=== PATIENT | male | born 1995 | race African-American/Black ===

== ENCOUNTER 2018-01-22 11:52 | Inpatient (IN) | payer OTHER ==
[2018-01-22 12:34] LABS: Reticulocyte Count 6.4 % (0.5-1.5)
[2018-01-22 12:57] LABS: ALT (SGPT) 56 U/L (8-55); AST (SGOT) 44 U/L (5-34); Albumin 4.6 g/dL (3.5-5.0); Alkaline Phosphatase 85 U/L (Less than 750); Anion Gap 13 mmol/L (10-20); BUN (Urea Nitrogen) 7 mg/dL (8.9-20.6); Bilirubin, Total 1.6 mg/dL (0.2-1.2); Calc. Creatinine Clearance 0 mL/min (70-130); Calcium 9.3 mg/dL (7.8-10.44); Carbon Dioxide 24 mmol/L (22-29); Chloride 108 mmol/L (98-107); Estimated GFR-MDRD Greater than 90; Globulin 3.3 g/dL (2.4-3.5); Glucose 99 mg/dL (70-105); Potassium 3.7 mmol/L (3.5-5.1); Protein, Total 7.9 g/dL (6.0-8.3); Sodium 141 mmol/L (136-145)
[2018-01-22 13:01] LABS: Band 3 % (5-11); Hemoglobin 12.1 g/dL (14.0-18.0); Hemoglobin C Crystals SLIGHT (None Seen); Lymphocytes 26 % (28-48); MDiff Complete? YES; Mean Corpuscular HGB CONC 35.6 g/dL (32.0-36.0); Mean Corpuscular Hemoglobin 30.6 pg (25.0-35.0); Mean Platelet Volume 7.7 fL (7.4-10.4); Monocytes 7 % (0-4); Myelocyte 1 % (0-0); Neutrophil 63 % (31-61); Nucleated RBC 1 % (0); Platelet Count 366 thou/uL (130-400); Polychromasia MARKED = >4 cells (100X) (0-2/hpf); Red Blood Cell (RBC) Count 3.95 mill/uL (4.00-5.20); Target Cells MODERATE= 6-15 cells (100X) (0-1/hpf); White Blood Cell (WBC) Count 12.1 thou/uL (4.8-10.8)
[2018-01-22] MEDS ORDERED: Morphine 4 MG/ML VIAL ONE (13:03)
--- NOTE | 2018-01-22 13:16 | RAD ---
PORTABLE CHEST ONE VIEW: 01/22/2018 12:44 p.m. HISTORY: Chest pain. Sickle cell crisis. FINDINGS: The heart size is normal. The lungs are well expanded without focal areas of consolidation, pneumoth orax, or pleural effusions. IMPRESSION: No radiographic evidence of acute cardiopulmonary process. POS: [facility]
[2018-01-22] MEDS ORDERED: HYDROmorphone 0.5 MG/0.5 ML SYRINGE SLOW IVP SCH (14:15)
[2018-01-22] MEDS ORDERED: HYDROmorphone 0.5 MG/0.5 ML SYRINGE ONE ×3 (15:06→17:37)
[2018-01-22] MEDS ORDERED: HYDROcodone/Acetaminophen 5/325 mg Tablet PO PRN ×2 (17:13)
[2018-01-22] MEDS ORDERED: Acetaminophen 325 MG TAB PO PRN (17:13)
[2018-01-22] MEDS ORDERED: Ondansetron HCl/PF 4 MG/2 ML Vial IVP PRN ×3 (17:13→18:29)
[2018-01-22] MEDS ORDERED: HYDROmorphone 2 MG/ML VIAL SLOW IVP SCH (17:15)
[2018-01-22] MEDS ORDERED: Morphine 4 MG/ML VIAL SLOW IVP PRN (17:16)
[2018-01-22] MEDS ORDERED: Zolpidem Tartrate 5 MG TAB PO PRN ×2 (17:58→18:29)
[2018-01-22] MEDS ORDERED: Promethazine HCl 25 MG/ML VIAL IM PRN ×2 (17:58→18:29)
[2018-01-22] MEDS ORDERED: Naloxone HCl 0.4 mg/ml Vial IV PRN ×2 (17:58→18:29)
[2018-01-22] MEDS ORDERED: diphenhydrAMINE 50 MG/ML VIAL IVP PRN ×2 (17:58→18:29)
[2018-01-22] MEDS ORDERED: HYDROmorphone 10 mg/100 ml CADD IVPB PRN (17:58)
[2018-01-22] MEDS ORDERED: diphenhydrAMINE 50 MG/ML VIAL IM PRN ×2 (17:58→18:29)
[2018-01-22] MEDS ORDERED: diphenhydrAMINE 25 MG CAP PO PRN (17:58)
[2018-01-22] MEDS ORDERED: Communication Order-Pharmacy FS SCH ×2 (18:00→18:30)
[2018-01-22] MEDS ORDERED: Morphine CADD 1 MG/ML CADD IVPB PRN ×2 (18:29→19:56)
[2018-01-22 18:31] VITALS: BMI 28.3
[2018-01-22] MEDS: Famotidine 40 MG/4 ML VIAL SLOW IVP SCH (20:56)
[2018-01-22] MEDS ORDERED: HYDROmorphone 10 mg/100 ml CADD IV PRN (21:38)
[2018-01-22] MEDS ORDERED: Ketorolac Tromethamine 30 MG/ML VIAL IVP SCH (21:45)
[2018-01-23] MEDS: diphenhydrAMINE 25 MG CAP PO PRN ×2 (00:11→15:17)
[2018-01-23] MEDS: Sodium Chloride 0.9% 1,000 ML IV SCH ×5 (00:15→20:30)
[2018-01-23 05:33] LABS: ALT (SGPT) 49 U/L (8-55); AST (SGOT) 37 U/L (5-34); Albumin 4.3 g/dL (3.5-5.0); Alkaline Phosphatase 67 U/L (Less than 750); Anion Gap 10 mmol/L (10-20); BUN (Urea Nitrogen) 7 mg/dL (8.9-20.6); Bilirubin, Total 1.9 mg/dL (0.2-1.2); Calc. Creatinine Clearance 196 mL/min (70-130); Calcium 9.2 mg/dL (7.8-10.44); Carbon Dioxide 28 mmol/L (22-29); Chloride 103 mmol/L (98-107); Estimated GFR-MDRD Greater than 90; Globulin 3.3 g/dL (2.4-3.5); Glucose 88 mg/dL (70-105); Potassium 3.7 mmol/L (3.5-5.1); Protein, Total 7.6 g/dL (6.0-8.3); Sodium 137 mmol/L (136-145)
[2018-01-23 05:49] LABS: Hemoglobin C Crystals SLIGHT (None Seen); Lymphocytes 18 % (28-48); MDiff Complete? YES; Mean Corpuscular HGB CONC 35.9 g/dL (32.0-36.0); Mean Corpuscular Volume 86.2 fl (77.0-87.0); Mean Platelet Volume 8.2 fL (7.4-10.4); Monocytes 14 % (0-4); Neutrophil 68 % (31-61); Nucleated RBC 7 % (0); Platelet Count 310 thou/uL (130-400); Polychromasia MODERATE = 3-4 cells (100X) (0-2/hpf); Red Blood Cell (RBC) Count 3.54 mill/uL (4.00-5.20); Target Cells MODERATE= 6-15 cells (100X) (0-1/hpf); White Blood Cell (WBC) Count 16.2 thou/uL (4.8-10.8)
[2018-01-23] MEDS: Famotidine 40 MG/4 ML VIAL SLOW IVP SCH ×2 (09:41→21:20)
[2018-01-23] MEDS: Enoxaparin Sodium 30 MG/0.3 ML SYRINGE SC SCH (09:49)
[2018-01-23] MEDS ORDERED: Morphine 4 MG/ML VIAL ONE (11:35)
[2018-01-23] MEDS ORDERED: Morphine 4 MG/ML VIAL IV SCH (11:45)
[2018-01-23] MEDS ORDERED: Acetaminophen 1,000 MG in Premix Bag 1 BAG IVPB SCH (11:45)
[2018-01-23] MEDS: Ketorolac Tromethamine 30 MG/ML VIAL IVP SCH ×3 (11:52→23:49)
[2018-01-23] MEDS: Acetaminophen 325 MG TAB PO SCH ×3 (11:53→23:50)
[2018-01-23] MEDS: HYDROmorphone 10 mg/100 ml CADD IV PRN (12:00)
--- NOTE | 2018-01-23 21:55 | PDOC.PN ---
- Subjective Encounter Start Date: 01/23/18 Encounter Start Time: 12:00 Subjective: nsg notes rev, placed on dilaudid crankshaft grinder ovn, improved pain ctrl per pt -: denies any sob, does have some pain with urination - Objective Resuscitation Status: Resuscitation Status FULL:Full Resuscitation Vital Signs & Weight: Vital Signs (12 hours) Temp Pulse Resp BP Pulse Ox 01/23/18 20:00 98.3 F 67 18 162/70 H 98 01/23/18 15:00 98.3 F 52 L 18 98 01/23/18 14:00 98.3 F 52 L 18 162/93 H 98 01/23/18 13:39 98.5 F 01/23/18 13:35 144/65 H 01/23/18 11:13 101.3 F H 72 29 H 191/88 H 97 Weight Weight 214 lb 12.8 oz I&O: 01/22/18 01/23/18 01/24/18 06:59 06:59 06:59 Intake Total 2139 850 Output Total 1175 1100 Balance 964 -250 Result Diagrams: 01/23/18 04:41 01/23/18 04:41 Phys Exam - Physical Examination Constitutional: NAD lying in hospital bed HEENT: PERRLA, sclera anicteric, oral pharynx no lesions Respiratory: no wheezing, no rales, no rhonchi, clear to auscultation bilateral Cardiovascular: RRR, no significant murmur, no rub Gastrointestinal: soft, non-tender, no distention, positive bowel sounds Musculoskeletal: no edema, pulses present Neurological: moves all 4 limbs Psychiatric: normal affect, A&O x 3 Dx/Plan - Plan * sickle cell crisis * hydration ivf ns @150 * pain control - dilaudid crankshaft grinder * apprec anesthsia c/s * leukocytosis and fever x1 ? directly related to ss crisis vs infectious etiology - initial cxr in er neg, check ua diet: as jessica activity: as jessica dvt ppx Review of Systems - Medications/Allergies Allergies/Adverse Reactions: Allergies Allergy/AdvReac Type Severity Reaction Status Date / Time No Known Allergies Allergy Verified 01/23/18 07:24 Medications: Current Medications Acetaminophen (Tylenol) 650 mg PO Q4H PRN PRN Reason: Headache/Fever or Pain Acetaminophen (Tylenol) 650 mg PO Q6HR [facility] Last Admin: 01/23/18 17:47 Dose: 650 mg Diphenhydramine HCl (Benadryl) 25 mg IVP Q3H PRN PRN Reason: Itching Diphenhydramine HCl (Benadryl) 25 mg PO Q3H PRN PRN Reason: Itching Last Admin: 01/23/18 15:17 Dose: 25 mg Diphenhydramine HCl (Benadryl) 25 mg IM Q3H PRN PRN Reason: Itching Enoxaparin Sodium (Lovenox) 30 mg SC 0900 [facility] Last Admin: 01/23/18 09:49 Dose: Not Given Famotidine (Pepcid) 20 mg SLOW IVP Q12HR [facility] Last Admin: 01/23/18 21:20 Dose: 20 mg Hydromorphone HCl (Dilaudid Cadd) 0 mg IV INF PRN PRN Reason: Pain Last Admin: 01/23/18 12:00 Dose: 10 mg Sodium Chloride (Normal Saline 0.9%) 1,000 mls @ 150 mls/hr IV .Q6H40M [facility] Last Admin: 01/23/18 20:30 Dose: 1,000 mls Acetaminophen 1,000 mg/ Device 100 mls @ 400 mls/hr IVPB ONE [facility] Stop: 01/24/18 13:00 Ketorolac Tromethamine (Toradol) 30 mg IVP Q6HR [facility] Stop: 01/28/18 12:01 Last Admin: 01/23/18 17:47 Dose: 30 mg Naloxone HCl (Narcan) 0.2 mg IV Q5MIN PRN PRN Reason: Opiate Reversal Ondansetron HCl (Zofran) 4 mg IVP Q6H PRN PRN Reason: Nausea/Vomiting Promethazine HCl (Phenergan) 12.5 mg IM Q4H PRN PRN Reason: Nausea/Vomiting Sodium Chloride (Flush - Normal Saline) 10 ml IVF Q12HR [facility] Last Admin: 01/23/18 21:30 Dose: Not Given Sodium Chloride (Flush - Normal Saline) 10 ml IVF PRN PRN PRN Reason: Saline Flush Zolpidem Tartrate (Ambien) 5 mg PO HSPRN PRN PRN Reason: Insomnia
[2018-01-24] MEDS: HYDROmorphone 10 mg/100 ml CADD IV PRN ×3 (00:38→22:34)
[2018-01-24] MEDS: Sodium Chloride 0.9% 1,000 ML IV SCH ×4 (02:30→22:40)
[2018-01-24 05:06] LABS: Bilirubin Negative (Negative); Blood, Urine Negative (Negative); Clarity CLEAR (Clear); Glucose, Urine (Dipstick) Negative (Negative); Leukocyte Small (Negative); Nitrite Negative (Negative); Protein, Urine (Dipstick) Negative (Neg-Trace); Specific Gravity, Urine 1.013 (1.002-1.036)
[2018-01-24 05:08] LABS: Bacteria/HPF None Seen HPF (None Seen); Hyaline Casts/LPF 0-3 HYALINE CAST LPF (0-3 Hyaline); RBC/HPF 0-3 HPF (0-3); Squamous Epithelial 0-3 HPF (0-3)
[2018-01-24] MEDS: Ketorolac Tromethamine 30 MG/ML VIAL IVP SCH ×3 (05:45→17:35)
[2018-01-24] MEDS: Acetaminophen 325 MG TAB PO SCH ×3 (05:45→17:36)
[2018-01-24 06:17] LABS: Band 1 % (5-11); Eosinophils 1 % (0-10); Hemoglobin 10.9 g/dL (14.0-18.0); Lymphocytes 17 % (28-48); MDiff Complete? YES; Mean Corpuscular Volume 86.1 fl (77.0-87.0); Mean Platelet Volume 8.6 fL (7.4-10.4); Monocytes 15 % (0-4); Neutrophil 65 % (31-61); Nucleated RBC 2 % (0); Platelet Count 262 thou/uL (130-400); RBC Distribution Width 13.5 % (11.5-14.5); Red Blood Cell (RBC) Count 3.51 mill/uL (4.00-5.20); White Blood Cell (WBC) Count 18.3 thou/uL (4.8-10.8)
[2018-01-24] MEDS: diphenhydrAMINE 25 MG CAP PO PRN (08:47)
[2018-01-24] MEDS: Enoxaparin Sodium 30 MG/0.3 ML SYRINGE SC SCH (08:47)
[2018-01-24] MEDS: Famotidine 40 MG/4 ML VIAL SLOW IVP SCH ×2 (08:48→20:42)
[2018-01-24] MEDS ORDERED: cefTRIAXone\\ROCEPHIN 2 GM in Sodium Chloride 0.9% 100 ML IVPB SCH (09:30)
[2018-01-24] MEDS ORDERED: cefTRIAXone\\ROCEPHIN 1 GM in Sodium Chloride 0.9% 100 ML IVPB SCH (09:31)
--- NOTE | 2018-01-24 09:44 | PDOC.PN ---
- Subjective Encounter Start Date: 01/24/18 Encounter Start Time: 09:43 Subjective: nsg notes rev - fever x2 inc fever ovn, pt denies any chest pain, SOB, c/o -: burning with urination, persistent dark urine and pain "all over" but worst -: behind his knees AND above his kneecaps b/l with prior sickle cell crises, tends to have migrating pain and fevers with his prior crisis - Objective Resuscitation Status: Resuscitation Status FULL:Full Resuscitation Vital Signs & Weight: Vital Signs (12 hours) Temp Pulse Resp BP Pulse Ox 01/24/18 08:18 98.1 F 66 16 104/57 L 99 01/24/18 04:00 98.5 F 86 18 154/71 H 01/24/18 00:30 102.5 F H 01/24/18 00:00 101.5 F H 101 H 20 154/74 H Weight Weight 214 lb 12.8 oz I&O: 01/23/18 01/24/18 01/25/18 06:59 06:59 06:59 Intake Total 2139 850 3800 Output Total 1175 1550 700 Balance 964 -700 3100 Result Diagrams: 01/24/18 04:02 01/23/18 04:41 Phys Exam - Physical Examination Constitutional: NAD lying in hospital bed HEENT: moist MMs, sclera anicteric, oral pharynx no lesions Respiratory: no wheezing, no rales, no rhonchi, clear to auscultation bilateral Cardiovascular: RRR, no significant murmur, no rub Gastrointestinal: soft, non-tender, no distention, positive bowel sounds Musculoskeletal: no edema, pulses present tenderness to palpation posterior fossa b/l LE no cord palpated tenderness to palpation immediate superior to patella Neurological: moves all 4 limbs Psychiatric: normal affect, A&O x 3 Dx/Plan - Plan * * sickle cell crisis * hydration ivf ns @150 * pain control - dilaudid air and water filler * apprec anesthsia c/s fever with leukocytosis * unclear etiology - check urine culture, check blood culture * empiric ceftriaxone, azithromycin - no fixed source at this point in time * check b/l LE ultrasound to eval for possible DVTx diet: as jessica activity: as jessica dvt ppx d/w pt and bedside nsg Review of Systems - Medications/Allergies Allergies/Adverse Reactions: Allergies Allergy/AdvReac Type Severity Reaction Status Date / Time No Known Allergies Allergy Verified 01/23/18 07:24 Medications: Current Medications Acetaminophen (Tylenol) 650 mg PO Q4H PRN PRN Reason: Headache/Fever or Pain Acetaminophen (Tylenol) 650 mg PO Q6HR [facility] Last Admin: 01/24/18 05:45 Dose: 650 mg Diphenhydramine HCl (Benadryl) 25 mg IVP Q3H PRN PRN Reason: Itching Diphenhydramine HCl (Benadryl) 25 mg PO Q3H PRN PRN Reason: Itching Last Admin: 01/24/18 08:47 Dose: 25 mg Diphenhydramine HCl (Benadryl) 25 mg IM Q3H PRN PRN Reason: Itching Enoxaparin Sodium (Lovenox) 30 mg SC 0900 [facility] Last Admin: 01/24/18 08:47 Dose: Not Given Famotidine (Pepcid) 20 mg SLOW IVP Q12HR [facility] Last Admin: 01/24/18 08:48 Dose: 20 mg Hydromorphone HCl (Dilaudid Cadd) 0 mg IV INF PRN PRN Reason: Pain Last Admin: 01/24/18 09:31 Dose: 10 mg Sodium Chloride (Normal Saline 0.9%) 1,000 mls @ 150 mls/hr IV .Q6H40M [facility] Last Admin: 01/24/18 02:30 Dose: 1,000 mls Acetaminophen 1,000 mg/ Device 100 mls @ 400 mls/hr IVPB ONE [facility] Stop: 01/24/18 13:00 Ceftriaxone Sodium 1 gm/ (Syringe 0.4 ml/ Sterile Water) 10 mls @ 120 mls/hr SLOW IVP 1000 [facility] Ketorolac Tromethamine (Toradol) 30 mg IVP Q6HR [facility] Stop: 01/28/18 12:01 Last Admin: 01/24/18 05:45 Dose: 30 mg Naloxone HCl (Narcan) 0.2 mg IV Q5MIN PRN PRN Reason: Opiate Reversal Ondansetron HCl (Zofran) 4 mg IVP Q6H PRN PRN Reason: Nausea/Vomiting Promethazine HCl (Phenergan) 12.5 mg IM Q4H PRN PRN Reason: Nausea/Vomiting Sodium Chloride (Flush - Normal Saline) 10 ml IVF Q12HR [facility] Last Admin: 01/23/18 21:30 Dose: Not Given Sodium Chloride (Flush - Normal Saline) 10 ml IVF PRN PRN PRN Reason: Saline Flush Zolpidem Tartrate (Ambien) 5 mg PO HSPRN PRN PRN Reason: Insomnia
--- NOTE | 2018-01-24 10:32 | HP ---
PRIMARY CARE PHYSICIAN: Out of town. CHIEF COMPLAINT: "All over pain." HISTORY OF PRESENT ILLNESS: This is a 22-year-old male with a known history of sickle cell who presents with what he terms as sickle cell pain that has failed his outpatient pain medication regimen. The patient is followed by a primary care provider out in [place], [place] and he is currently in town visiting. At the time of my evaluation, the patient appears to be in acute distress, is very tender to touch everywhere during physical examination, very much in discomfort at rest. He has received 1 liter IV fluid in the emergency department and 4 mg of morphine along with 2 mg total of Dilaudid split into 2 doses. The patient states that those pain medications helped a little bit, but have long since worn off. His last dose was approximately 1-1/2 hours prior to my evaluation. REVIEW OF SYSTEMS: As per HPI. CONSTITUTIONAL: Subjective fevers without chills. No recent illnesses otherwise, no recent weight change. HEENT: No new headaches, vision changes, lightheadedness or dizziness. CARDIOVASCULAR: Denies any chest pain, chest pressure or diaphoretic episodes, left-sided arm numbness or tingling. RESPIRATORY: Denies any shortness of breath, denies any dyspnea with exertion. Denies any recent upper respiratory infection. Denies any cough, congestion, sinus tenderness or ear pain. GASTROINTESTINAL: Denies any nausea, vomiting. Denies any specifically abdominal pain accompanied with any diarrhea or constipation. Last bowel movement was reported as yesterday. GENITOURINARY: Endorses intermittent burning with urination. Denies any changes in urinary frequency quality or quantity. MUSCULOSKELETAL: Endorses muscle aches and pains all over. Joint pain, he endorses as having some lower back pain and bilateral knee pain. States that when he has a sickle cell crisis his pain is inconsistent meaning that with each crisis he may not have pain in the same area. The remainder of the review of systems is otherwise negative. PAST MEDICAL HISTORY: Sickle cell. PAST SURGICAL HISTORY: Denies any surgeries. HOME MEDICATIONS: The patient states that he takes hydrocodone at home, did not bring any with him to the emergency department. FAMILY HISTORY: The patient denies any known family history of sickle cell disease - multiple family members with trait but no one with disease. SOCIAL HISTORY: The patient is here visiting. Denies any alcohol, tobacco or illicit drug use. PHYSICAL EXAMINATION: GENERAL: The patient is awake. He is conversant. He appears to be very uncomfortable, is curled a "" position. HEENT: Normocephalic, atraumatic. Slightly dry mucous membranes. Equal ocular motions are intact. CARDIOVASCULAR: S1, S2. No murmurs, rubs or gallops. Pulses 2+ bilateral upper extremities, no pitting pedal edema. RESPIRATORY: Reasonable air movement. No wheezes, rales or rhonchi. No dyspnea with conversation. ABDOMEN: Positive bowel sounds, soft, nondistended. NEUROLOGIC: Able to move all 4 extremities spontaneously. LABORATORY AND IMAGING: WBC 12.1, hemoglobin 12.1, hematocrit 33.9, platelets 366, retic count 6.4. Sodium 141, potassium 3.9, chloride 108, bicarbonate 24, BUN 7, creatinine 0.81, glucose 99, calcium 9.3, total bilirubin 1.6, AST 44, ALT 56, alkaline phosphatase 85, total protein 7.9, albumin 4.6. ASSESSMENT AND PLAN: A 22-year-old male with a known history of sickle cell who was positive for hemoglobin S on a sickle cell screen and presenting with acute pain. 1. Concern for a sickle cell crisis and/or a vasoocclusive episode. IV fluids , start normal saline 150 mL an hour. Pain control. Suspect the patient will need a JOCKEY VALET pump. We will trial a morphine JOCKEY VALET pump initially. If this fails to control the patient's symptoms to consider Anesthesia consult for a Dilaudid JOCKEY VALET pump. Monitor leukocytosis. Currently no focal etiology of infection, no chest pain/ SOB/ hypoxia/ evidence of vaso-occlusive infarction in current imaging. Continue to closely monitor for ssx suggestive of the above. I discussed the above with the patient and patient will be admitted to Medical/ Surgical. SHYLA
[2018-01-24] MEDS: cefTRIAXone\\ROCEPHIN 1 GM, Syringe 0.4 ML in Sterile Water 9.6 ML SLOW IVP SCH (11:20)
--- NOTE | 2018-01-24 11:33 | PQF ---
DATE: 01-24-18 ATTN: DR. ABISAI BIRCH Please exercise your independent, professional judgment in responding to the clarification form. Clinical indicators are provided on the bottom of this form for your review Please check appropriate box(s): [ x ] UTI [ ] Contaminated urine specimen without UTI [ ] Other diagnosis [ ] Unable to determine In addition, please specify: Present on Admission (POA): [ x ] Yes [ ] No [ ] Unable to determine For continuity of documentation, please document condition throughout progress notes and discharge summary. Thank You. CLINICAL INDICATORS - SIGNS / SYMPTOMS / LABS URINE: 01-24-18: URINE KETONES: 15 H UR LEUKOCYTE ESTERASE: SMALL H URINE WBC: 11-20 H TEMP: 01-23-18: 100.4, 100.4, 101.3 01-24-18: 101.5, 102.5 PN 01-24-18: BURNING WITH URINATION, PERSISTENT DARK URINE AND PAIN "ALL OVER" RISK FACTORS: PN 01-24-18: BURNING WITH URINATION, PERSISTENT DARK URINE AND PAIN "ALL OVER" H&P: IN WITH SICKLE CELL CRISIS TREATMENT: (MAR) IVF, ROCEPHIN (This form is maintained as a part of the permanent medical record) 2014 [employer] All Rights Reserved KELLY [email or web address] Office: [phone] SHYLA
--- NOTE | 2018-01-24 13:09 | ULT ---
VENOUS DUPLEX SONOGRAM BILATERAL LOWER EXTREMTIES: History: Bilateral leg pain and edema. FINDINGS: Each common femoral vein and greater saphenous junction were evaluated along with each femoral, deep femoral, popliteal, and posterior tibial vein. There is good color and spectral doppler flow, se dimitry, and augmentation. IMPRESSION: No sonographic evidence of DVT within either lower extremity. POS: [facility]
[2018-01-25] MEDS: Acetaminophen 325 MG TAB PO SCH ×5 (00:35→23:17)
[2018-01-25] MEDS: Ketorolac Tromethamine 30 MG/ML VIAL IVP SCH ×5 (00:36→23:18)
[2018-01-25] MEDS: Sodium Chloride 0.9% 1,000 ML IV SCH ×4 (05:34→23:21)
[2018-01-25] MEDS: Enoxaparin Sodium 30 MG/0.3 ML SYRINGE SC SCH (07:25)
[2018-01-25] MEDS: cefTRIAXone\\ROCEPHIN 1 GM, Syringe 0.4 ML in Sterile Water 9.6 ML SLOW IVP SCH (07:56)
[2018-01-25] MEDS: HYDROmorphone 10 mg/100 ml CADD IV PRN (08:26)
[2018-01-25] MEDS: Famotidine 40 MG/4 ML VIAL SLOW IVP SCH ×2 (09:39→20:04)
--- NOTE | 2018-01-25 10:27 | PDOC.PN ---
- Subjective Encounter Start Date: 01/25/18 Encounter Start Time: 10:25 Subjective: nsg notes rev, srinivasan ovn, no new c/o, states that the back pain has -: gone but the b/l LE pain is still present. had fever yesterday. no more -: burning with urination. - Objective Resuscitation Status: Resuscitation Status FULL:Full Resuscitation Vital Signs & Weight: Vital Signs (12 hours) Temp Pulse Resp BP Pulse Ox 01/25/18 07:19 98.6 F 83 17 01/25/18 05:00 98.6 F 83 17 150/70 H 93 L 01/25/18 00:00 101 F H 91 18 150/73 H 93 L Weight Weight 214 lb 12.8 oz I&O: 01/24/18 01/25/18 01/26/18 06:59 06:59 06:59 Intake Total 850 8070 Output Total 1550 5150 700 Balance -700 2920 -700 Result Diagrams: 01/24/18 04:02 01/23/18 04:41 Phys Exam - Physical Examination Constitutional: NAD lying in hospital bed HEENT: moist MMs, sclera anicteric, oral pharynx no lesions Respiratory: no wheezing, no rales, no rhonchi, clear to auscultation bilateral Cardiovascular: RRR, no significant murmur, no rub Gastrointestinal: soft, non-tender, positive bowel sounds Musculoskeletal: no edema, pulses present Neurological: moves all 4 limbs Psychiatric: normal affect, A&O x 3 Dx/Plan - Plan * sickle cell crisis * hydration ivf ns @150 * pain control - dilaudid sider mechanic * apprec anesthsia c/s fever with leukocytosis * pending blood culture, urine culture * empiric ceftriaxone, azithromycin - no fixed source at this point in time * b/l LE US neg for DVT * repeat CBC, BMP diet: as jessica activity: as jessica dvt ppx d/w pt and bedside nsg Review of Systems - Medications/Allergies Allergies/Adverse Reactions: Allergies Allergy/AdvReac Type Severity Reaction Status Date / Time No Known Allergies Allergy Verified 01/23/18 07:24 Medications: Current Medications Acetaminophen (Tylenol) 650 mg PO Q4H PRN PRN Reason: Headache/Fever or Pain Acetaminophen (Tylenol) 650 mg PO Q6HR [facility] Last Admin: 01/25/18 05:31 Dose: 650 mg Diphenhydramine HCl (Benadryl) 25 mg IVP Q3H PRN PRN Reason: Itching Diphenhydramine HCl (Benadryl) 25 mg PO Q3H PRN PRN Reason: Itching Last Admin: 01/24/18 08:47 Dose: 25 mg Diphenhydramine HCl (Benadryl) 25 mg IM Q3H PRN PRN Reason: Itching Enoxaparin Sodium (Lovenox) 30 mg SC 0900 [facility] Last Admin: 01/25/18 07:25 Dose: Not Given Famotidine (Pepcid) 20 mg SLOW IVP Q12HR [facility] Last Admin: 01/25/18 09:39 Dose: Not Given Hydromorphone HCl (Dilaudid Cadd) 0 mg IV INF PRN PRN Reason: Pain Last Admin: 01/25/18 08:26 Dose: 10 mg Sodium Chloride (Normal Saline 0.9%) 1,000 mls @ 150 mls/hr IV .Q6H40M [facility] Last Admin: 01/25/18 08:01 Dose: 1,000 mls Ceftriaxone Sodium 1 gm/ (Syringe 0.4 ml/ Sterile Water) 10 mls @ 120 mls/hr SLOW IVP 1000 [facility] Last Admin: 01/25/18 07:56 Dose: 10 mls Ketorolac Tromethamine (Toradol) 30 mg IVP Q6HR [facility] Stop: 01/28/18 12:01 Last Admin: 01/25/18 05:32 Dose: 30 mg Naloxone HCl (Narcan) 0.2 mg IV Q5MIN PRN PRN Reason: Opiate Reversal Ondansetron HCl (Zofran) 4 mg IVP Q6H PRN PRN Reason: Nausea/Vomiting Promethazine HCl (Phenergan) 12.5 mg IM Q4H PRN PRN Reason: Nausea/Vomiting Sodium Chloride (Flush - Normal Saline) 10 ml IVF Q12HR [facility] Last Admin: 01/25/18 07:25 Dose: Not Given Sodium Chloride (Flush - Normal Saline) 10 ml IVF PRN PRN PRN Reason: Saline Flush Zolpidem Tartrate (Ambien) 5 mg PO HSPRN PRN PRN Reason: Insomnia
[2018-01-25 10:49] LABS: Anion Gap 10 mmol/L (10-20); BUN (Urea Nitrogen) 6 mg/dL (8.9-20.6); Calc. Creatinine Clearance 222 mL/min (70-130); Calcium 8.5 mg/dL (7.8-10.44); Carbon Dioxide 27 mmol/L (22-29); Chloride 104 mmol/L (98-107); Estimated GFR-MDRD Greater than 90; Glucose 103 mg/dL (70-105); Potassium 3.1 mmol/L (3.5-5.1); Sodium 138 mmol/L (136-145)
[2018-01-25 10:59] LABS: Eosinophils 3 % (0-10); Hemoglobin 9.7 g/dL (14.0-18.0); Lymphocytes 14 % (28-48); MDiff Complete? YES; Mean Corpuscular HGB CONC 36.7 g/dL (32.0-36.0); Mean Corpuscular Hemoglobin 31.5 pg (25.0-35.0); Mean Corpuscular Volume 85.8 fl (77.0-87.0); Monocytes 5 % (0-4); Neutrophil 77 % (31-61); Platelet Count 221 thou/uL (130-400); RBC Distribution Width 13.6 % (11.5-14.5); Reactive Lymphocytes 1 % (0-10); Sickle Cells SLIGHT = 1-5 cells (100X) (None Seen); White Blood Cell (WBC) Count 26.2 thou/uL (4.8-10.8)
[2018-01-25] MEDS: Ondansetron ODT 4 MG TAB PO PRN (16:45)
--- NOTE | 2018-01-25 18:22 | RAD ---
PORTABLE CHEST ONE VIEW: at 5:42 p.m. HISTORY: Decreased oxygen saturation. FINDINGS: The heart size is normal. The lungs are expanded without focal areas of consolidation, pneumothorax o r pleural effusions. IMPRESSION: No radiographic evidence of acute cardiopulmonary process. POS: [facility]
[2018-01-26] MEDS: Ondansetron ODT 4 MG TAB PO PRN (04:07)
[2018-01-26] MEDS: Acetaminophen 325 MG TAB PO SCH (05:11)
[2018-01-26] MEDS: Ketorolac Tromethamine 30 MG/ML VIAL IVP SCH (05:11)
[2018-01-26] MEDS: Sodium Chloride 0.9% 1,000 ML IV SCH (06:05)
[2018-01-26] MEDS ORDERED: Potassium Chloride 20 MEQ TAB PO SCH (07:45)
[2018-01-26 08:55] VITALS: BP 163/76; TEMP 98.6
== END 2018-01-26 08:17 | disposition left against medical advice (07) | DRG 812 ==
LOC: ERS 11:52 → OBSVTOIN 16:11 → 2SW 16:11 → T4-A 01-23 14:18
PROVIDERS: ADMIT Internal Medicine; ATTEND Internal Medicine
DX: D57.00 Hb-SS disease with crisis, unspecified (principal); N39.0 Urinary tract infection, site not specified
CPT/HCPCS: 36415; 71045; 80048; 80053; 81003; 81015; 85025; 85046; 85660; 87040; 87086; 93970; 96361; 96374; 96375; 96376; A4216; J0131; J0696; J1170; J1650; J1885; J2270; J2274; J2550; Q0162